=== PATIENT | male | born 1975 | race Hispanic/Latino ===

== ENCOUNTER 2021-05-03 05:55 | Observation (INO) | payer BC ==
[2021-04-27 10:19] LABS: Hematocrit 50.2 % (35.5-45.6); Hemoglobin 16.9 gm/dl (11.8-15.2); Mean Corpuscular HGB Conc 34 % (32-34); Mean Corpuscular Volume 89 fl (84-94); Platelet Count 258 K/mm3 (140-440); Red Blood Count 5.63 M/mm3 (3.65-5.03); Red Cell Distribution Width 12.7 % (13.2-15.2)
[2021-04-27 10:41] LABS: Alanine Aminotransferase 27 units/L (7-56); Albumin 4.7 g/dL (3.9-5); BUN/Creatinine Ratio 9; Blood Urea Nitrogen 10 mg/dL (9-20); Calcium 9.5 mg/dL (8.4-10.2); Hemolysis Index 7
--- NOTE | 2021-04-27 14:35 | Anesthesia Consultation ---
Anesthesia Consult and Med Hx Date of service: 05/03/21 - Airway Anesthetic Teeth Evaluation: Good ROM Head & Neck: Adequate Mental/Hyoid Distance: Adequate Mallampati Class: Class II Intubation Access Assessment: Probably Good - Pulmonary Exam CTA: Yes - Cardiac Exam Cardiac Exam: RRR - Pre-Operative Health Status ASA Pre-Surgery Classification: ASA3 Proposed Anesthetic Plan: General - Pulmonary Hx Smoking: No Hx Respiratory Symptoms: No Hx Sleep Apnea: No (GARTH PRE SCREEN LOW RISK) - Cardiovascular System Hx Hypertension: Yes Hx Heart Attack/AMI: Yes (s/p stents x2 in 2017; ASA held since 04/25/21) Hx Cardia Arrhythmia: No - Central Nervous System CVA: No - Endocrine Hx Renal Disease: No Hx Liver Disease: No Hx Insulin Dependent Diabetes: No Hx Non-Insulin Dependent Diabetes: No Hx Thyroid Disease: No - Other Systems Hx Obesity: No - Additional Comments Anesthesia Medical History Comments: No hx anesthetic complications. Preop cardiology eval on chart reviewed.
[2021-05-03] MEDS ORDERED: ACETAMINOPHEN 500 MG TAB PO SCH (06:00)
[2021-05-03] MEDS ORDERED: GABAPENTIN 300 MG CAP PO NR (06:00)
[2021-05-03] MEDS ORDERED: LACTATED RINGERS 1,000 ML IV SCH (06:00)
[2021-05-03] MEDS ORDERED: MIDAZOLAM 2 MG/2 ML INJ IV NR (06:00)
[2021-05-03] MEDS ORDERED: VANCOMYCIN/NS 1 GM/250 ML 1 GM/250 ML BAG IV ONE (07:00)
--- NOTE | 2021-05-03 07:32 | Anesthesia Day of Surgery ---
Anesthesia Day of Surgery - Day of Surgery Patient Examined: Yes Patient H&P Reviewed: Yes Patient is NPO: Yes
[2021-05-03] MEDS ORDERED: ONDANSETRON 4 MG/2 ML INJ ONE (07:48)
[2021-05-03] MEDS ORDERED: LIDOCAINE MPF (2%) 20 MG/1 ML VIAL 5 ML ONE (07:48)
[2021-05-03] MEDS ORDERED: HYDROmorphone 1 MG/1 ML INJ ONE (07:49)
[2021-05-03] MEDS ORDERED: propofoL 200 MG/20 ML VIAL IV ONE (07:50)
[2021-05-03] MEDS ORDERED: BUPIVACAINE/PF (0.5%) 5 MG/1 ML 30 ML VIAL INFILTRATI ONE ×2 (07:53→08:57)
[2021-05-03] MEDS ORDERED: SODIUM CHLORIDE P/F VIAL 10 ML 10 ML ONE (07:53)
[2021-05-03] MEDS ORDERED: GENTAMICIN 40 MG/ML VIAL 2 ML ONE (07:53)
[2021-05-03] MEDS ORDERED: SODIUM CHLORIDE 0.9% 500 ML 500 ML ONE (07:54)
[2021-05-03] MEDS ORDERED: NEOMY 40 MG/POLYMYXIN B 200,000 UNITS/ML (GU) AMPULE IR ONE ×2 (07:54→09:00)
[2021-05-03] MEDS ORDERED: rifAMPin 600 MG VIAL ONE (07:54)
[2021-05-03] MEDS ORDERED: GENTAMICIN 140 MG in SODIUM CHLORIDE 0.9% 100 ML IV ONE (08:00)
[2021-05-03] MEDS ORDERED: ONDANSETRON 4 MG/2 ML INJ IV PRN (08:00)
[2021-05-03] MEDS ORDERED: HYDROmorphone 1 MG/1 ML INJ IV PRN ×2 (08:00)
[2021-05-03] MEDS ORDERED: SODIUM CHLORIDE 0.9% 500 ML IVPB IRRIGATION ONE (08:57)
[2021-05-03] MEDS ORDERED: GENTAMICIN 40 MG/ML VIAL 2 ML IV ONE (08:57)
[2021-05-03] MEDS ORDERED: SODIUM CHLORIDE 0.9% P/F 10 ML VIAL INFILTRATI ONE (08:58)
[2021-05-03] MEDS ORDERED: rifAMPin 600 MG VIAL IV ONE (09:00)
[2021-05-03] MEDS ORDERED: SODIUM CHLORIDE 0.9% IRR 1,500 ML BOTTLE IR ONE (09:03)
[2021-05-03] MEDS ORDERED: PHENYLEPHRINE/NS 1,000 MCG/10 ML SYRINGE (OR USE) IV ONE (09:10)
--- NOTE | 2021-05-03 10:20 | Short Stay Summary ---
Short Stay Documentation Date of service: 05/03/21 - History H&P: obtained from office - Allergies and Medications Current Medications: Allergies Sulfa (Sulfonamide Antibiotics) Allergy (Verified 04/20/21 16:58) Anaphylaxis Home Medications Medication Instructions Recorded Confirmed Last Taken Type Aspirin [Sawyer Aspirin EC] 81 mg PO DAILY 04/20/21 04/20/21 Unknown History Lovastatin 20 mg PO HS 04/27/21 04/27/21 Unknown History amLODIPine 5 mg PO HS 04/27/21 04/27/21 Unknown History Active Medications Acetaminophen (Acetaminophen 500 Mg Tab) 1,000 mg PO PREOP FELTON Stop: 05/03/21 21:00 Last Admin: 05/03/21 06:50 Dose: 1,000 mg Gabapentin (Gabapentin 300 Mg Cap) 300 mg PO PREOP NR Stop: 05/03/21 23:00 Last Admin: 05/03/21 06:50 Dose: 300 mg Hydromorphone HCl (Hydromorphone 1 Mg/1 Ml Inj) 0.25 mg IV Q10MIN PRN PRN Reason: Pain, Moderate (4-6) Stop: 05/03/21 18:00 Hydromorphone HCl (Hydromorphone 1 Mg/1 Ml Inj) 0.5 mg IV Q10MIN PRN PRN Reason: Pain , Severe (7-10) Stop: 05/03/21 18:00 Lactated Ringer's (Lactated Ringers) 1,000 mls @ 100 mls/hr IV DIRECT FELTON Stop: 05/03/21 23:59 Last Admin: 05/03/21 06:40 Dose: 100 mls/hr Midazolam HCl (Midazolam 2 Mg/2 Ml Inj) 2 mg IV PREOP NR Stop: 05/03/21 23:00 Last Admin: 05/03/21 07:00 Dose: 2 mg Ondansetron HCl (Ondansetron 4 Mg/2 Ml Inj) 4 mg IV ONCE PRN PRN Reason: Nausea And Vomiting Stop: 05/03/21 18:00 - Brief post op/procedure progress note Date of procedure: 05/03/21 Pre-op diagnosis: ed, voluntary sterilzation Post-op diagnosis: same Procedure: ipp, vasectomy Anesthesia: GETA Surgeon: ZHEN YAO Pathology: list (skin, vas bilat) Specimen disposition: to lab - Hospital course Hospital course: pt has abx, pain meds, post op info - Disposition Condition at discharge: Stable Disposition: 01 HOME / SELF CARE / HOMELESS Short Stay Discharge Plan Follow up with: ZACKARY BAEZ MD [Primary Care Provider] - 7 Days
[2021-05-03] MEDS ORDERED: dexAMETHasone 20 MG/5 ML VIAL ONE (10:35)
[2021-05-03 12:35] VITALS: BP 130/80
--- NOTE | 2021-05-03 18:39 | Post Anesthesia Evaluation ---
- Post Anesthesia Evaluation Patient Participated: Yes Airway Patent: Yes Stable Respiratory Function: Yes Nausea/Vomiting: No Temp > 96.8F: Yes Pain Manageable: Yes Adequeate Hydration: Yes Anesthesia Complications: No Block Receding Appropriately: Not Applicable Patient on Ventilator: No
--- NOTE | 2021-05-04 18:14 | Operative Report ---
DATE OF SURGERY: 05/03/2021 PREOPERATIVE DIAGNOSES: Organic impotence, voluntary sterilization. POSTOPERATIVE DIAGNOSES: Organic impotence, voluntary sterilization, redundant scrotal skin. PROCEDURES: Insertion of inflatable penile prosthesis (coloplast Titan), injection of pharmacologic agent to the corporal body, scrotoplasty, vasectomy. SURGEON: Frantz Solis MD ANESTHESIA: General. ESTIMATED BLOOD LOSS: Minimal. FLUIDS: Crystalloid. COMPLICATIONS: No complications. INDICATIONS: This is a 45-year-old gentleman known to our service with a history of erectile dysfunction due to cardiovascular disease. He had been on oral medication and he ultimately did not work anymore, most recently penile injection therapy; however, he reviewed the penile implant video with his . Questions were answered. They agreed to proceed with surgical intervention. Also, they want to proceed with vasectomy. DESCRIPTION OF PROCEDURE: The patient was taken to the operative suite, placed in a supine position. After adequate general anesthesia, he was prepped and draped in a sterile fashion. 0.25% Marcaine was injected into the right corporal body. No plaque or curvature could be appreciated. A transscrotal incision was made with a Bovie. Sharp dissection was taken down to the corporal bodies. Metal Ponce retractor was used for exposure. Corporotomies were made bilaterally. Gentle dilation with measuring tool was performed. Total measurements of both corporal bodies were 22 cm and therefore, a 22 cm Titan device was used, 125 mL reservoir was prepped and placed in the retropubic space via the right external ring, 100 mL of saline was inflated in the reservoir. The cylinders were prepped, placed in the corporal bodies with the aid of the Matt needles seated well. Corporotomies were closed with 2-0 Vicryl in a running fashion. External insufflation of the device was performed with adequate erection. The pump and reservoir was connected with the quick click connection system. Internal insufflation revealed appearance of an excellent erection. Copious irrigation was performed. Adequate hemostasis was achieved. Redundant scrotal skin was excised. The pump was placed in the dependent portion of the scrotum. A pursestring suture using 2-0 Vicryl in a running fashion was used to close the dartos layer. A second 2-0 Vicryl layer was used to close the subcutaneous tissue and then the skin was closed with 3-0 Vicryl in an interrupted fashion. Xeroform gauze was placed. Collodion mummy wrap was placed as well. The penis was taped to the abdomen. Montes De Oca catheter was left indwelling and was extubated and taken to recovery room. He will go home on Cipro and Prospect and follow up in the office. TID: [id number] RECEIPT: [id number] LOUIS/EVAN MTDD
== END 2021-05-03 12:15 | disposition home or self-care (01) ==
LOC: 3A 05:55 → INTOOBSV 05:55
PROVIDERS: ADMIT Urology; ATTEND Urology
DX: N52.01 Erectile dysfunction due to arterial insufficiency (principal); Z20.822 Contact with and (suspected) exposure to COVID-19; N52.9 Male erectile dysfunction, unspecified; I25.10 Atherosclerotic heart disease of native coronary artery without angina pectoris; Z30.2 Encounter for sterilization; Z30.09 Encounter for other general counseling and advice on contraception; Z71.3 Dietary counseling and surveillance; Z79.82 Long term (current) use of aspirin
CPT/HCPCS: 36415; 54401; 55175; 55250; 80053; 85027; 88304; 88305; C1813; G0378; G0379; J1100; J1170; J1580; J2250; J2370; J2405; J2704; J3490; J7040; J7120; U0003